=== PATIENT | female | born 1955 | race Caucasian/White ===

== ENCOUNTER → 2016-09-08 | Outpatient (CLI) | payer OTHER ==
--- NOTE | 2016-09-08 16:46 | MAMMOGRAPHY REPORT ---
BILATERAL DIGITAL SCREENING MAMMOGRAM TOMOSYNTHESIS WITH CAD: 09/08/2016 CLINICAL HISTORY: Routine screening examination. TECHNIQUE: Breast tomosynthesis in addition to standard 2D mammography was performed. Current study was also evaluated with a Computer Aided Detection (CAD) system. COMPARISON: Comparison is made to exams dated: 09/05/2015 mammogram, 08/31/2014 mammogram, 08/24/2012 m ammogram, 08/05/2011 mammogram, 07/29/2010 mammogram, and 07/23/2009 mammogram - [facility]. BREAST COMPOSITION: There are scattered areas of fibroglandular density in both breasts. FINDINGS: There is a new 6 mm oval mass in the retroareolar/12:00 right breast, for which additiona l spot compression tomosynthesis views and targeted ultrasound are recommended, although this may re present a cyst. No other suspicious mass, architectural distortion or cluster of microcalcifications is seen bilater ally. IMPRESSION: ACR BI-RADS CATEGORY 0: INCOMPLETE EVALUATION: NEED ADDITIONAL IMAGING EVALUATION The new 6 mm oval mass in the right breast needs additional evaluation. The patient will be called to schedule an appointment. Approximately 10% of breast cancers are not detected with mammography. A negative mammographic repor t should not delay biopsy if a clinically suggestive mass is present. Wendy Pollack M.D. ay/:09/08/2016 16:13:11 Database Engineer: Raquel MORELAND)([place]), [facility] letter sent: Addl Imaging 0 BI-RADS Code: ACR BI-RADS Category 0: Incomplete Evaluation: Need Additional Imaging Evaluation
== END | disposition home or self-care (01) ==
LOC: C.MAMM 07:45
PROVIDERS: ATTEND Obstetrics & Gynecology
DX: Z12.31 Encounter for screening mammogram for malignant neoplasm of breast (principal); N63 Unspecified lump in breast

== ENCOUNTER → 2016-09-16 | Outpatient (CLI) | payer OTHER ==
--- NOTE | 2016-09-16 12:45 | MAMMOGRAPHY REPORT ---
UNILATERAL RIGHT DIGITAL DIAGNOSTIC MAMMOGRAM TOMOSYNTHESIS AND TARGETED RIGHT ULTRASOUND: 09/16/2016 CLINICAL HISTORY: 61-year-old woman called back from screening mammography for a newly visualized 6 mm oval mass in the right breast. TECHNIQUE: Spot compression CC and MLO tomosynthesis images and reconstructed CC view of the right b reast were obtained. COMPARISON: Comparison is made to exams dated: 09/08/2016 mammogram, 08/31/2014 mammogram - [facility], 07/19/2008, 07/23/2009 mammogram, 07/29/2010 mammogram, and 08/05/2011 mammogram - [facility]. BREAST COMPOSITION: There are scattered areas of fibroglandular density in the right breast. FINDINGS: Spot compression tomosynthesis views of the right breast demonstrate persistence of a pos sible 4.7 mm mass in the posterior breast, slightly lateral to the posterior nipple line on the CC v iew. No suspicious architectural distortion or clustered microcalcification. A questionable second oval 5.7 mm mass slightly more lateral in the right breast on the CC view. Either of these are fly ntified on the spot compression MLO view but are likely located inferiorly within the breasts. Rex tional evaluation with ultrasound was performed. Targeted ultrasound was performed in the right breast. In the 9:00 axis, 9 cm from the nipple, a mo rphologically normal lymph node is identified, measuring 3.5 mm with a thin cortex measuring 0.8 mm. This is likely incidental. In the 7:00 axis, 2 cm from the nipple, there is an oval isoechoic frank id-appearing mass measuring 2.7 x 2.4 x 4.3 mm. This may correlate with the newly visualized 6 mm m ammographic mass and is indeterminate. Definitive characterization with tissue sampling is recommen ded. There is probable focal duct ectasia measuring 3.5 mm in the 8:30 right breast, 3 cm from the nipple. This may possibly correlate with the other questionable low density circumscribed subcentim eter mass seen mammographically. IMPRESSION: ACR BI-RADS CATEGORY 4B: INTERMEDIATE SUSPICION FOR MALIGNANCY, TARGETED ULTRASOUND ACR BI-RADS CATEGORY 4B: INTERMEDIATE SUSPICION FOR MALIGNANCY 1. Ultrasound guided core biopsy is recommended for an indeterminate solid 4.3 mm mass in the 7:00 right breast, thought to correlate with the newly visualized mammographic mass. However, correlatio n with postprocedure mammograms is recommended to assess for mammographicsonographic correlation. 2. There is a questionable second low-density benign-appearing 5 mm mass slightly lateral to the fi rst, on the spot compression CC view, with a possible correlate of benign duct ectasia in the 8:30 r ight breast. This can be reassessed on post procedure imaging but pending benign pathology results, a short interval follow-up exam may also be useful. These results and recommendations were discussed with the patient at the time of the exam. She tent atively scheduled the right breast biopsy prior to leaving our department. Approximately 10% of breast cancers are not detected with mammography. A negative mammographic repor t should not delay biopsy if a clinically suggestive mass is present. Wendy Pollack M.D. ay/:09/16/2016 12:21:33 Director Of Supply Chain: Sandro REGALADO(R)([place]), [facility] letter sent: Abnormal 4/5 BI-RADS Code: ACR BI-RADS Category 4B: Intermediate Suspicion For Malignancy Ultrasound BI-RADS: AC R BI-RADS Category 4B: Intermediate Suspicion For Malignancy
== END | disposition home or self-care (01) ==
LOC: C.MAMM 07:55
PROVIDERS: ATTEND Obstetrics & Gynecology
DX: N63 Unspecified lump in breast (principal)

== ENCOUNTER → 2016-09-24 | Outpatient (CLI) | payer OTHER ==
--- NOTE | 2016-09-24 08:50 | Discharge Instructions ---
Discharge Instructions Procedure Procedure Date: Sep 24, 2016. Reason for visit: Right Mass. Discharge Discharge Date: Sep 24, 2016. Discharge Diagnosis: post right breast ultrasound guided core biopsy Instructions Activity Recommendations: Additional Limitations (see below) Return to School/Work: no limitations Recommended Home Diet: No Limitations Provider Instructions: ACTIVITY RECOMMENDATIONS: * No lifting, pushing, pulling or exercising the affected side for three days. RETURN TO SCHOOL/WORK: * You may return to work/school after the procedure, but do not perform any strenuous activities for 24 to 48 hours. MEDICATIONS: * Tylenol (two 325 mg) every four to six hours if needed for mild pain (if not allergic to Tylenol). DIET: * Resume previous diet. SPECIAL CARE INSTRUCTIONS: * Keep biopsy site dry for 24 hours. May shower after 24 hours, but do not soak (bathe) incision. * May remove Tegaderm (plastic patch) tomorrow AFTER showering. * Leave the steri-strips on for one week. Allow the steri-strips to fall off by themselves. If not off after one week, you may remove them. You may place a Bandaid crosswise over the strips, if desired. * Apply ice 10 minutes on and 10 minutes off as needed. * Wear a bra at bedtime to sleep more comfortably for 2-3 days. * Your referring physician should have the results after approximately 5 to 7 business days. * Call for unusual bleeding, fever, drainage, etc or if you have any questions call [phone] during normal business hours or after hours call Dr Pollack, . FOLLOW UP VISIT: Follow-up with Referring Physician as scheduled. Allergies Coded Allergies: No Known Allergies (Unverified Allergy, Mild, 10/26/07) Robbie Avilez Recommendations: Call your doctor if: * Temperature above 101 degrees * Pain not relieved by pain medicine ordered * There is increased drainage or redness from any incision * You have any unanswered questions or concerns. Your Doctors Instructions noted above were prepared by provider Wedny Pollack. Patient Signature Section: Patient Instructions Signature Page Julianne Suh Patient (or Guardian) Signature/Date: I have read and understand the instructions given to me by my caregivers. Caregiver/RN/Doctor Signature/Date: The above-named patient and/or guardian has received patient instructions on this date. + Original Patient Signature Page (only) stays with chart. Please make copy for patient.
--- NOTE | 2016-09-24 12:36 | MAMMOGRAPHY REPORT ---
UNILATERAL RIGHT DIGITAL DIAGNOSTIC MAMMOGRAM TOMOSYNTHESIS: 09/24/2016 CLINICAL HISTORY: Indeterminate solid mass in the 6:30 to 7:00 right breast. Patient presents for u ltrasound guided core needle biopsy. Please refer to the report from right breast ultrasound guided core biopsy [facility] for full detail. IMPRESSION: POST PROCEDURE IMAGING FOR MARKER PLACEMENT Please refer to the report from right breast ultrasound guided core biopsy performed [facility] the [facility] for full detail. Approximately 10% of breast cancers are not detected with mammography. A negative mammographic repor t should not delay biopsy if a clinically suggestive mass is present. Wendy Pollack M.D. ay/:09/24/2016 08:49:07 Leather Novelty Parts Cutter: Kalee Smith, [facility] BI-RADS Code: Post Procedure Imaging For Marker Placement
--- NOTE | 2016-09-24 12:36 | MAMMOGRAPHY REPORT ---
THIS REPORT HAS BEEN AMENDED. ULTRASOUND GUIDED BIOPSY RIGHT BREAST: 09/24/2016 CLINICAL HISTORY: Indeterminate solid mass in the 6:30 - 7:00 right breast. Patient returns for ult rasound-guided core biopsy. COMPARISON: Comparison is made to exams dated: 09/16/2016 mammogram, 09/16/2016 ultrasound, 09/08/2016 m ammogram, 09/05/2015 mammogram, 08/31/2014 mammogram, and 08/28/2013 ultrasound - [facility]. PATIENT CONSENT: The procedure, risks and benefits were discussed with the patient and informed writ ten consent was obtained. Specific risks to this procedure include: bleeding, infection, puncture of adjacent structure, nontarget biopsy, metal allergy, sampling error and medication reaction. PROCEDURE DESCRIPTION: A time out was performed and the right breast was agreed as the site of biops y. The skin was prepped and draped in the usual sterile fashion. The solid mass in the 6:30 to 7:00 right breast was chosen as the target for biopsy. Subcutaneous and intraparenchymal 1% buffered lido [place] was administered as local anesthesia. A skin incision was made. Through the incision, 4 sampl es were taken with a 14 gauge Achieve biopsy device. A metallic marker was placed at the biopsy site . Hemostasis was achieved after manual compression. The patient tolerated the procedure well and the re was no immediate complication. The samples were sent to the pathology department in an appropria tely labeled container. Postprocedure right CC and ML 2-D digital and tomosynthesis images were obtained. There is a new ri bbon-shaped metallic biopsy marker in the 6:00 posterior right breast. On the CC view aligns with t he mammographic mass in question. However there is also mild 1-1.5 cm asymmetry likely representing a combination of blood and local anesthesia at the site of the biopsy obscuring the borders of the biopsied mass. Therefore, pending benign pathology results would recommend follow-up right mammogra ms and repeat ultrasound to ensure stability in 6 months. IMPRESSION: ULTRASOUND GUIDED BIOPSY Status post ultrasound-guided core needle biopsy of a solid mass in the 6:30 to 7:00 right breast, w ith biopsy marker placed at the site. The biopsied mass aligns with the mammographic mass in questi on, but there is mild bleeding and local anesthesia at the site of the biopsy obscuring all of the b orders of the mass. Therefore, pending benign pathology results would recommend follow-up diagnosti c imaging of the right breast in 6 months to ensure stability. The patient will receive notification of the biopsy results from her referring physician. Wendy Pollack M.D. ay/:09/24/2016 10:26:18 Recycling Program Manager: Kalee Smith, [facility] AMENDMENT: 10/08/2016 Wendy Pollack M.D. 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 In the comment sect ion of the pathology report, "the submitted tissue fails to reveal significant cytologic atypia". I t is currently controversial whether all papillomas without atypia need to be surgically excised, ho wehyun, surgical consultation for discussion of possible surgical excision is recommended. Otherwise could plan to follow-up with diagnostic mammograms of the right breast and repeat ultrasound in [facility].
== END | disposition home or self-care (01) ==
LOC: C.MAMM 07:26
PROVIDERS: ATTEND Obstetrics & Gynecology
DX: N63 Unspecified lump in breast (principal)

== ENCOUNTER → 2016-11-26 | Outpatient (CLI) | payer OTHER | END | disposition home or self-care (01) | LOC: C.PAPS 15:08 | PROVIDERS: ATTEND Obstetrics & Gynecology | DX: Z12.4 Encounter for screening for malignant neoplasm of cervix (principal) ==

== ENCOUNTER → 2016-12-24 | Outpatient (CLI) | payer OTHER | END | disposition home or self-care (01) | LOC: C.PATHSPEC 13:57 | PROVIDERS: ATTEND Obstetrics & Gynecology | DX: A63.0 Anogenital (venereal) warts (principal) ==

== ENCOUNTER → 2017-03-04 | Outpatient (CLI) | payer OTHER | END | disposition home or self-care (01) | LOC: C.PATHSPEC 17:28 | PROVIDERS: ATTEND Obstetrics & Gynecology | DX: R87.619 Unspecified abnormal cytological findings in specimens from cervix uteri (principal) ==

== ENCOUNTER → 2017-03-24 | Outpatient (CLI) | payer OTHER ==
--- NOTE | 2017-03-24 15:19 | MAMMOGRAPHY REPORT ---
UNILATERAL RIGHT DIGITAL DIAGNOSTIC MAMMOGRAM TOMOSYNTHESIS WITH CAD AND TARGETED RIGHT ULTRASOUND: CLINICAL HISTORY: The patient had an ultrasound-guided core needle biopsy of a right 7:00 breast mass September 2016 which yielded an intraductal papilloma. The patient had a surgical excision by Dr. Braun, and the patient reports that the pathology of the surgical excision also showed a papilloma (th e pathology is not available for review). The patient was told that the biopsy marker clip in her br east was not removed during surgery as the clip had migrated. TECHNIQUE: Breast tomosynthesis in addition to standard 2D mammography was performed. Current study was also evaluated with a Computer Aided Detection (CAD) system. Right CC and MLO 2-D and tomosynthe sis images were obtained. COMPARISON: Comparison is made to exams dated: 09/24/2016 ultrasound biopsy, 09/24/2016 mammogram, 017 mammogram, 09/16/2016 ultrasound, 09/08/2016 mammogram, and 09/05/2015 mammogram - [facility]. BREAST COMPOSITION: There are scattered areas of fibroglandular density in the right breast. FINDINGS: A biopsy marker clip is again noted in the right breast at approximately 6:00. A small no dular asymmetry associated with the biopsy marker clip seen on the cc view appears stable to smaller in size compared to the August 2016 exam. A linear scar marker denotes a scar on the right upper ou ter breast anteriorly. The remainder of the right breast is stable compared to prior exams, without suspicious masses, calcifications, or areas of architectural distortion noted. Targeted ultrasound was performed of the right 7:00 breast in the region of the previously biopsied m ass. There are new ill-defined hypoechoic regions in the right 7 to 8:00 periareolar breast, consist ent with postsurgical changes. 2 adjacent hypoechoic nodular regions are seen within the right 7:00 periareolar breast, one measuring 2 x 2 mm and the other measuring 2 x 2 mm. If one of these corresp onds with the previously biopsied right 7:00 breast mass, they are both smaller in size, with the pre viously biopsied mass measuring 4 x 3 x 2 mm on 09/16/2106. No increasing or suspicious mass is noted on ultrasound. It is unclear based on the images if the initial mass which was biopsied in the right 7:00 breast and yielded papilloma was surgically removed. However, given that the mass did not have any atypia on pathology and given the stability on imaging, the finding can be followed on imaging for any changes. IMPRESSION: ACR BI-RADS CATEGORY 2: BENIGN, TARGETED ULTRASOUND ACR BI-RADS CATEGORY 2: BENIGN Postsurgical changes in the right breast status post surgical excision of a papilloma. The biopsy ma rker clip from biopsy of the right 7:00 breast mass is still present within the breast. The nodular asymmetry associated with the biopsy marker clip is stable to smaller in size compared to the 2016 exam. Given that the pathology on core needle biopsy yielded a benign papilloma and given andres t the finding is well-seen mammographically and has not increased, the area can be monitored on routi ne screening mammograms for any changes in size. There is no mammographic or targeted sonographic evidence of malignancy. Return to annual mammogram s creening schedule is recommended, due August 2017. The patient has been verbally notified of the re sults. Approximately 10% of breast cancers are not detected with mammography. A negative mammographic report should not delay biopsy if a clinically suggestive mass is present. Rhianna Avila M.D. ah/:03/24/2017 12:54:10 Director Of Product Marketing: Kalee REGALADO(R)(M), [facility] letter sent: Normal 1/2 BI-RADS Code: ACR BI-RADS Category 2: Benign Ultrasound BI-RADS: ACR BI-RADS Category 2: Benign
== END | disposition home or self-care (01) ==
LOC: C.MAMM 08:06
PROVIDERS: ATTEND Surgery
DX: Z12.31 Encounter for screening mammogram for malignant neoplasm of breast (principal); N63 Unspecified lump in breast; N64.89 Other specified disorders of breast

== ENCOUNTER → 2017-05-20 | Outpatient (CLI) | payer OTHER | END | disposition home or self-care (01) | LOC: C.LAB 08:12 | PROVIDERS: ATTEND Nutritionist | DX: R53.83 Other fatigue (principal) ==

== ENCOUNTER → 2017-09-13 | Outpatient (CLI) | payer OTHER ==
--- NOTE | 2017-09-13 15:52 | MAMMOGRAPHY REPORT ---
BILATERAL DIGITAL SCREENING MAMMOGRAM TOMOSYNTHESIS WITH CAD: 09/13/2017 CLINICAL HISTORY: Routine screening. Patient has no complaints. TECHNIQUE: Breast tomosynthesis in addition to standard 2D mammography was performed. Current study was also evaluated with a Computer Aided Detection (CAD) system. COMPARISON: Comparison is made to exams dated: 03/24/2017 ultrasound, 03/24/2017 mammogram, 09/24/2016 ult rasound biopsy, 09/24/2016 mammogram, 09/16/2016 mammogram, and 09/16/2016 ultrasound - [facility]. BREAST COMPOSITION: There are scattered areas of fibroglandular density in both breasts. FINDINGS: No suspicious masses, calcifications, or areas of architectural distortion are noted in ei ther breast. There has been no significant interval change compared to prior exams. A biopsy marker clip is again noted within the right central/6:00 breast. A linear scar marker denotes a scar on the right anterior breast. IMPRESSION: ACR BI-RADS CATEGORY 2: BENIGN There is no mammographic evidence of malignancy. A 1 year screening mammogram is recommended. The pa tient will receive written notification of the results. Approximately 10% of breast cancers are not detected with mammography. A negative mammographic report should not delay biopsy if a clinically suggestive mass is present. Rhianna Avila M.D. /:09/13/2017 08:24:57 Limousine And Hearse Upholsterer: Kalee Smith, [facility] letter sent: Normal 1/2 BI-RADS Code: ACR BI-RADS Category 2: Benign
== END | disposition home or self-care (01) ==
LOC: C.MAMM 08:00
PROVIDERS: ATTEND Obstetrics & Gynecology
DX: Z12.31 Encounter for screening mammogram for malignant neoplasm of breast (principal)

== ENCOUNTER → 2017-12-14 | Outpatient (CLI) | payer OTHER | END | disposition home or self-care (01) | LOC: C.PAPS 11:44 | PROVIDERS: ATTEND Obstetrics & Gynecology | DX: N87.1 Moderate cervical dysplasia (principal) ==